=== PATIENT | male | born 1995 | race Caucasian/White ===

== ENCOUNTER 2020-05-27 18:32 | Emergency (ER) | payer OTHER ==
--- NOTE | 2020-05-27 20:07 | RAD REPORT ---
EXAM DESCRIPTION: CT - C Spine Wo Con - 05/27/2020 7:56 pm CLINICAL HISTORY: PAIN Trauma, neck injury COMPARISON: No comparisons FINDINGS: The cervical vertebral body heights and disc spaces are maintained. No evidence of acute cervical spine fracture or subluxation. Prevertebral soft tissues are normal in thickness. IMPRESSION: Negative for acute cervical spine abnormality. All CT scans are performed using dose optimization technique as appropriate and may include automated exposure control or mA/KV adjustment according to patient size.
[2020-05-27] MEDS ORDERED: HYDROCODONE/APAP 10/325 TAB ONE (20:09)
--- NOTE | 2020-05-27 20:34 | RAD REPORT ---
EXAM DESCRIPTION: RAD - Wrist Left 3 View - 05/27/2020 8:20 pm CLINICAL HISTORY: PAIN Pain COMPARISON: No comparisons FINDINGS: No fracture or dislocation seen. Old traumatic changes affect the ulnar styloid.
--- NOTE | 2020-05-27 20:35 | RAD REPORT ---
EXAM DESCRIPTION: RAD - Elbow Left 3 View - 05/27/2020 8:20 pm CLINICAL HISTORY: PAIN COMPARISON: No comparisons FINDINGS: No acute fracture or dislocation evident.
--- NOTE | 2020-05-27 20:36 | RAD REPORT ---
EXAM DESCRIPTION: RAD - Ankle Left 3 View - 05/27/2020 8:20 pm CLINICAL HISTORY: PAIN COMPARISON: No comparisons FINDINGS: No acute fracture or dislocation is seen.
--- NOTE | 2020-05-27 20:37 | RAD REPORT ---
EXAM DESCRIPTION: RAD - Shoulder Left 2 View - 05/27/2020 8:22 pm CLINICAL HISTORY: PAIN COMPARISON: <Comparisons> FINDINGS: No bone or joint abnormality detected.
--- NOTE | 2020-05-27 20:39 | ER ---
Nurse's Notes [facility] Name: Joseph Smith Age: 24 yrs Sex: Male : 1995 Arrival Date: 05/27/2020 Time: 18:34 Bed 18 Private MD: Diagnosis: Contusion of left elbow;Contusion of left shoulder;Sprain of ankle Presentation: 05/27 18:59 Chief complaint: Patient states: Fell off skateboard at 1720 today. Landed on L side. ll1 Left elbow pain with limited ROM. L neck/.L shoulder. Left knee and ankle pain is getting better. Coronavirus screen: Client denies travel out of the [place] in the last 14 days. At this time, the client does not indicate any symptoms associated with coronavirus-19. Ebola Screen: Patient denies travel to an Ebola-affected area in the 21 days before illness onset. Initial Sepsis Screen: Does the patient meet any 2 criteria? No. Patient's initial sepsis screen is negative. Does the patient have a suspected source of infection? Yes: Bone or joint infection. Risk Assessment: Do you want to hurt yourself or someone else? Patient reports no desire to harm self or others. Onset of symptoms was May 27, 2020. 18:59 Method Of Arrival: Ambulatory ll1 18:59 Acuity: HERB 4 ll1 Historical: - Allergies: 19:01 No Known Allergies; ll1 - PMHx: 19:01 None; ll1 - PSHx: 19:01 2 meniscus repair, L wrist; ll1 - Immunization history:: Last tetanus immunization: unknown, Flu vaccine is not up to date. - Social history:: Smoking status: Patient denies any tobacco usage or history of. Screenin:35 Abuse screen: Denies threats or abuse. Nutritional screening: No deficits noted. jb4 Tuberculosis screening: No symptoms or risk factors identified. Fall Risk None identified. Assessment: 19:30 General: Appears in no apparent distress. comfortable, Behavior is calm, cooperative, jb4 appropriate for age. Pain: Complains of pain in left elbow Pain does not radiate. Pain currently is 5 out of 10 on a pain scale. Neuro: Level of Consciousness is awake, alert, obeys commands, Oriented to person, place, time, situation. Cardiovascular: Patient's skin is warm and dry. Pulses are 3+ in left radial artery. Respiratory: Airway is patent Respiratory effort is even, unlabored, Respiratory pattern is regular, agonal. GI: No signs and/or symptoms were reported involving the gastrointestinal system. : No signs and/or symptoms were reported regarding the genitourinary system. EENT: No signs and/or symptoms were reported regarding the EENT system. Derm: Skin is intact, Skin is pink, warm \T\ dry. Musculoskeletal: Circulation, motion, and sensation intact. Capillary refill < 3 seconds, in left fingers. Range of motion: limited in left elbow. Vital Signs: 18:59 BP 162 / 114; Pulse 85; Resp 17; Temp 98.5; Pulse Ox 99% ; Weight 86.18 kg; Height 5 ll1 ft. 10 in. (177.80 cm); Pain 5/10; 20:45 BP 135 / 80; Pulse 80; Resp 16; Pulse Ox 98% on R/A; jb4 18:59 Body Mass Index 27.26 (86.18 kg, 177.80 cm) ll1 ED Course: 18:34 Patient arrived in ED. as 19:00 Triage completed. ll1 19:01 Arm band placed on. ll1 19:10 Justin Ma PA is PHCP. jr8 19:10 Vidal Noel MD is Attending Physician. jr8 19:16 Brent Brown, RN is Primary Nurse. jb4 19:35 Patient has correct armband on for positive identification. Bed in low position. Call jb4 light in reach. Side rails up X 1. 19:57 CT C Spine In Process Unspecified. EDMS 20:23 Wrist Left (3 View) XRAY In Process Unspecified. EDMS 20:23 Elbow Left 3 View XRAY In Process Unspecified. EDMS 20:23 Shoulder Left (2 View) XRAY In Process Unspecified. EDMS 20:23 Ankle Left 3 View XRAY In Process Unspecified. EDMS 20:45 No provider procedures requiring assistance completed. Patient did not have IV access jb4 during this emergency room visit. Administered Medications: 20:41 Drug: [place] 10 mg-325 mg 1 tabs Route: PO; jb4 20:47 Follow up: Response: Medication administered at discharge. jb4 Outcome: 20:39 Discharge ordered by . jr8 20:45 Discharged to home ambulatory. jb4 20:45 Condition: stable 20:45 Discharge instructions given to patient, Instructed on discharge instructions, follow up and referral plans. medication usage, Demonstrated understanding of instructions, follow-up care, medications, Prescriptions given X 1. 20:47 Patient left the ED. jb4 Signatures: Dispatcher [employer] Hali Monet Josh, PA PA jr8 Brent Brown RN RN jb4 Ashley Gunter RN RN ll1
--- NOTE | 2020-05-27 20:39 | EDPHYS ---
Physician Documentation [facility] Name: Joseph Smith Age: 24 yrs Sex: Male : 1995 Arrival Date: 05/27/2020 Time: 18:34 Bed 18 Private MD: ANTONIO Physician Vidal Noel HPI: 05/27 19:51 This 24 yrs old Male presents to ER via Ambulatory with complaints of Elbow jr8 Injury. 19:51 The patient or guardian complains of an abrasion, decreased range of motion, injury, jr8 tenderness. The complaints affect the left axilla, left bicep, left antecubital area, dorsal aspect of left forearm, left wrist, posterior aspect of left shoulder, left tricep, left elbow and palmar aspect of left forearm. Context: The problem was sustained outdoors, resulted from a fall, while skating. Onset: The symptoms/episode began/occurred today. Associated signs and symptoms: Pertinent positives: pain. Patient was skateboarding this evening and fell on L side. he is c/o L shoulder, arm, elbow, wrist pain with L ankle pain. He denies LOC or hitting his head. Denies CP or SOB. Denies any back pain except for neck and c-spine region. Denies any health issues or taking blood thinners. . Historical: - Allergies: 19:01 No Known Allergies; ll1 - PMHx: 19:01 None; ll1 - PSHx: 19:01 2 meniscus repair, L wrist; ll1 - Immunization history:: Last tetanus immunization: unknown, Flu vaccine is not up to date. - Social history:: Smoking status: Patient denies any tobacco usage or history of. ROS: 19:54 Eyes: Negative for injury, pain, redness, and discharge, Cardiovascular: Negative for jr8 chest pain, palpitations, and edema, Respiratory: Negative for shortness of breath, cough, wheezing, and pleuritic chest pain, Abdomen/GI: Negative for abdominal pain, nausea, vomiting, diarrhea, and constipation, Back: Negative for injury and pain, Neuro: Negative for headache, weakness, numbness, tingling, and seizure. 19:54 Neck: Positive for tenderness, of the scalp. 19:54 MS/extremity: Positive for injury or acute deformity, decreased range of motion, tenderness, of the left ankle and left arm. Exam: 19:56 Head/Face: Normocephalic, atraumatic. Eyes: Pupils equal round and reactive to light, jr8 extra-ocular motions intact. Lids and lashes normal. Conjunctiva and sclera are non-icteric and not injected. Cornea within normal limits. Periorbital areas with no swelling, redness, or edema. Chest/axilla: Normal chest wall appearance and motion. Nontender with no deformity. No lesions are appreciated. Cardiovascular: Regular rate and rhythm with a normal S1 and S2. No gallops, murmurs, or rubs. Normal PMI, no JVD. No pulse deficits. Respiratory: Lungs have equal breath sounds bilaterally, clear to auscultation and percussion. No rales, rhonchi or wheezes noted. No increased work of breathing, no retractions or nasal flaring. Abdomen/GI: Soft, non-tender, with normal bowel sounds. No distension or tympany. No guarding or rebound. No evidence of tenderness throughout. Back: No spinal tenderness. No costovertebral tenderness. Full range of motion. Neuro: Awake and alert, GCS 15, oriented to person, place, time, and situation. Cranial nerves II-XII grossly intact. Motor strength 5/5 in all extremities. Sensory grossly intact. Cerebellar exam normal. Normal gait. 19:56 Neck: External neck: tenderness, that is mild, of the left mid cervical area, right mid cervical area and lower cervical area, C-spine: vertebral tenderness, that is mild, appreciated at C2, C3, C4, C5, C6 and C7. 19:56 Musculoskeletal/extremity: Extremities: grossly normal except: noted in the left arm: decreased ROM, tenderness, ROM: Circulation is intact in all extremities. Pulses: are normal with no appreciated deficits, Perfusion: the extremity is normally perfused throughout, Sensation intact. Vital Signs: 18:59 BP 162 / 114; Pulse 85; Resp 17; Temp 98.5; Pulse Ox 99% ; Weight 86.18 kg; Height 5 ll1 ft. 10 in. (177.80 cm); Pain 5/10; 20:45 BP 135 / 80; Pulse 80; Resp 16; Pulse Ox 98% on R/A; jb4 18:59 Body Mass Index 27.26 (86.18 kg, 177.80 cm) ll1 MDM: 19:10 Patient medically screened. jr8 19:58 Data reviewed: vital signs, nurses notes, radiologic studies, CT scan, plain films. 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 Interpretation: normal. 20:38 Counseling: I had a detailed discussion with the patient and/or guardian regarding: the jr8 historical points, exam findings, and any diagnostic results supporting the discharge/admit diagnosis, radiology results, the need for outpatient follow up, a family practitioner, to return to the emergency department if symptoms worsen or persist or if there are any questions or concerns that arise at home. 05/27 19:38 Order name: Wrist Left (3 View) XRAY; Complete Time: 20:38 jr8 05/27 19:38 Order name: CT C Spine; Complete Time: 20:20 jr8 05/27 19:38 Order name: Elbow Left 3 View XRAY; Complete Time: 20:38 jr8 05/27 19:38 Order name: Shoulder Left (2 View) XRAY; Complete Time: 20:38 jr8 05/27 19:39 Order name: Ankle Left 3 View XRAY; Complete Time: 20:38 jr8 Administered Medications: 20:41 Drug: [place] 10 mg-325 mg 1 tabs Route: PO; jb4 20:47 Follow up: Response: Medication administered at discharge. jb4 Disposition: 22:19 Co-signature as Attending Physician, Vidal Noel MD I agree with the assessment and rayna plan of care. Disposition: 05/27/20 20:39 Discharged to Home. Impression: Contusion of left elbow, Contusion of left shoulder, Sprain of ankle. - Condition is Stable. - Discharge Instructions: Ankle Sprain, Shoulder Pain, Elbow Contusion. - Prescriptions for Ibuprofen 800 mg Oral Tablet - take 1 tablet by ORAL route every 12 hours As needed take with food; 20 tablet. - Medication Reconciliation Form, Thank You Letter, Antibiotic Education, Prescription Opioid Use form. - Follow up: Private Physician; When: 2 - 3 days; Reason: Recheck today's complaints, Continuance of care, Re-evaluation by your physician. - Problem is new. - Symptoms have improved. Signatures: Dispatcher [employer] EDVidal Maza MD MD cha Roszak, Josh, PA PA jr8 Brent Brown RN RN jb4 Ashley Gunter RN RN ll1 Corrections: (The following items were deleted from the chart) 19:59 19:51 Patient was skateboarding this evening and fell on L side. he is c/o L shoulder, jr8 arm, elbow, wrist pain with L ankle pain. He denies LOC or hitting his head. Denies any health issues or taking blood thinners. . jr8 20:47 20:39 05/27/2020 20:39 Discharged to Home. Impression: Contusion of left elbow; jb4 Contusion of left shoulder; Sprain of ankle. Condition is Stable. Forms are Medication Reconciliation Form, Thank You Letter, Antibiotic Education, Prescription Opioid Use. Follow up: Private Physician; When: 2 - 3 days; Reason: Recheck today's complaints, Continuance of care, Re-evaluation by your physician. Problem is new. Symptoms have improved. jr8
[2020-05-27 22:19] VITALS: TEMP 98.5
[2020-05-27 22:20] VITALS: BP 135/80; O2SAT 98
== END 2020-05-27 20:47 | disposition home or self-care (01) ==
LOC: ER 18:32
DX: S50.02XA Contusion of left elbow, initial encounter (principal); S40.012A Contusion of left shoulder, initial encounter; S93.402A Sprain of unspecified ligament of left ankle, initial encounter; V00.138A Other skateboard accident, initial encounter; Y93.51 Activity, roller skating (inline) and skateboarding
CPT/HCPCS: 72125; 99283